=== PATIENT | male | born 1965 | race Caucasian/White ===

== ENCOUNTER 2025-02-10 21:34 | Emergency (ER) | payer SELFPAY ==
[2025-02-10 21:46] VITALS: BP 156/95; PULSE 76; RESP 22; TEMP 36.8; O2SAT 100; BMI 31.1
--- NOTE | 2025-02-10 21:47 | ECG_ITS ---
APPROVED REPORT Exam: Resting ECG HR:80 bpm ECG Measurements Heart Rate 80 AXES UT 147 P 65 QRSd 98 QRS 48 QT 351 T 62 QTc 387 Conclusion SINUS RHYTHM POSSIBLE RIGHT VENTRICULAR CONDUCTION DELAY [RSR (QR) IN V1/V2] MODERATE ST DEPRESSION [0.05+ mV ST DEPRESSION] ABNORMAL ECG UNCONFIRMED REPORT Electronically signed by : SAMEERA HOWE, 02/11/2025 00:17:07
--- NOTE | 2025-02-10 21:53 | [facility].EDGENADL ---
Discharge Plan Disposition Patient Disposition: Home, Self-Care Condition: Good Referrals Follow up/Referrals: Provider,Referral, [Primary Care Provider, Medical] - See instructions Activity Restrictions/Add. Instructions Additional Instructions/Restrictions: okay to go to [facility]. Clinical Impressions Clinical Impression: Chest pain Print Language Print Language: Lao Discharge ED Provider: Paola Franks Adult HPI General Chief complaint: Medical Clearance Stated complaint: Medical clearance Time Seen by Provider: 02/10/25 21:48 Mode of Arrival: Ambulatory Source of Information: Patient Description of Symptoms (Recalled from ER Triage Doc. by RN): pt reports knee and shoulder pain its metal and dont work pt also reports his heart defibrillates but doesnt have a pacemaker pt reports chest pain times 1 week. pt reports his hands hurt from arthritis. History of Present Illness HPI narrative: Patient is a 67-year-old gentleman who presents to the emergency department with chest pain for 3 weeks. Patient states that he has had a constant pain. Patient denies any shortness of breath. Patient denies any abdominal pain nausea vomiting or diarrhea. Patient states that he drank 6 beers today. Patient states that he does not typically drink daily. Denies any palpitations. States that he has musculoskeletal pain in both of his shoulders and knees but has not had any trauma. Patient denies any new pain. Related Data Allergies Allergy/AdvReac Type Severity Reaction Status Date / Time morphine Allergy Unknown Verified 02/10/25 22:00 allergy reaction [facility] Disclaimer: The information contained in this section may have been updated after the patient was seen, as this information can be updated by other users. Social History Smoking Status: Current every day smoker alcohol intake: never current occupational status: other Travel in the last 8 weeks?: None ROS Obtained: Yes All systems reviewed & no additional complaints except as documented and Yes Systems reviewed as appropriate & no additional complaints except as documented Physical Exam General General appearance: alert and in no apparent distress Head Head exam: atraumatic, normocephalic and normal inspection Eye Eye exam: Present normal appearance, PERRL and EOMI; Absent scleral icterus ENT ENT exam: Present normal exam and normal external ear exam Neck Neck exam: Present normal inspection and full ROM Chest Chest inspection: Present normal inspection and symmetric chest wall rise Respiratory Respiratory exam: Present normal lung sounds bilaterally; Absent respiratory distress or wheezes Cardiovascular Cardiovascular exam: Present regular rate, normal rhythm and normal heart sounds Abdominal Exam Abdominal exam: Present soft and distention; Absent tenderness, guarding or rebound Extremities Exam Extremities exam: Present normal inspection and full ROM Back Exam Back exam: Present normal inspection and full ROM Neurological Exam Neurological exam: Present alert and oriented X3 Psychiatric Psychiatric exam: Present normal affect and normal mood Skin Skin exam: Present warm and dry Medical Decision Making Medical Records Medical records reviewed: Yes I reviewed the patient's medical records. Screening: Per USPSTF and CDC recommendations, given the prevalence of disease in our region, it is our hospital?s policy to screen for HIV and viral Hepatitis for all patients aged 18 and over and those with ongoing risk factors. Micah Inquiry Pt receiving controlled substance: No Vital Signs: 02/10/25 21:46 02/10/25 23:18 Temperature 98.2 F 98.2 F Temperature Source Oral Pulse Rate 80 Pulse Rate [Right] 76 Respiratory Rate 22 18 Blood Pressure 148/77 H Blood Pressure [Right Arm] 156/95 H Blood Pressure Mean [Right Arm] 115 02 Sat by Pulse Oximetry 100 Oxygen Delivery Method Room Air Room Air Lab Data Lab results reviewed: Yes I reviewed the patient's lab results. Lab Results 02/10/25 22:07: WBC 7.0, RBC 4.81, Hgb 15.2, Hct 45.2, MCV 94.0, MCH 31.6 H, MCHC 33.6, RDW 13.5, Plt Count 248, MPV 10.2, Neut % (Auto) 64.9, Lymph % (Auto) 21.1, [place] % (Auto) 9.8 H, Eos % (Auto) 2.9, Baso % (Auto) 0.9, Neut # (Auto) 4.6, Lymph # (Auto) 1.5, [place] # (Auto) 0.7, Eos # (Auto) 0.2, Baso # (Auto) 0.1, Sodium 139, Potassium 4.3, Chloride 107, Carbon Dioxide 22, Anion Gap 14.3, BUN 8 L, Creatinine 0.80, Estimated Creat Clear 145, Estimated GFR 99, Est GFR ( Amer) 119, Glucose 121 H, Calcium 9.0, Total Bilirubin 0.4, AST 99 H, ALT 57, Alkaline Phosphatase 173 H, Troponin I < 0.01, Total Protein 8.2, Albumin 4.9, Globulin 3.3 H, Albumin/Globulin Ratio 1.5, Lipase 91 02/10/25 22:07 02/10/25 22:07 Orders (Tests/Meds): ORDERS Category Date Time Status CXR --portable [XR chest portable] Stat Exams 02/10/25 21:57 Completed CBC w/Auto Diff [Complete Blood Count Auto Diff] Stat Lab 02/10/25 22:07 Completed CMP [Comprehensive Metabolic Panel] Stat Lab 02/10/25 22:07 Completed Lipase Stat Lab 02/10/25 22:07 Completed Trop I [Troponin I] Stat Lab 02/10/25 22:07 Completed Medical Decision Narrative: Patient is an otherwise healthy 59-year-old male who presented to the emergency department with chest pain for 3 weeks. On arrival, patient was hemodynamically stable with unremarkable vital signs. Differential includes but not limited to: Musculoskeletal pain, costochondritis, ACS/MT, pneumothorax, pleural effusion, amongst others. Labs were obtained as well as x-ray. Patient's labs were reviewed and interpreted by myself: CBC showed no leukocytosis, hemoglobin was stable. CMP was unremarkable. Troponin was less than 0.01. X-ray was reviewed and interpreted by myself and showed no focal consolidation, pneumothorax, pleural effusion or other acute cardiopulmonary process. Given the patient's symptoms have been present for 3 weeks, I did not feel that second troponin was indicated. At this time, patient was medically cleared for [facility]. Critical Care Critical Care Time Critical Care Time: No
--- NOTE | 2025-02-10 21:57 | XR_ITS ---
PROCEDURE INFORMATION: Exam: XR Chest Exam date and time: 02/10/2025 10:09 PM Age: 59 years old Clinical indication: Other: Chest pain TECHNIQUE: Imaging protocol: Radiologic exam of the chest. Views: 1 view. Total images: 1 COMPARISON: No relevant prior studies available. FINDINGS: Lungs: Unremarkable. No consolidation. No pulmonary vascular congestion or edema. Pleural spaces: Unremarkable. No pleural effusion. No pneumothorax. Heart/Mediastinum: Unremarkable. No cardiomegaly. No mediastinal widening or hilar enlargement. Vasculature: Mildly atherosclerotic aortic arch. Bones/joints: Left shoulder arthroplasty. Mild degenerative changes thoracic spine. IMPRESSION: No acute findings.
[2025-02-10 22:13] LABS: Hematocrit 45.2 % (42.0-52.0); Hemoglobin 15.2 g/dL (14.1-18.0); Immature Granulocytes % 0.4 %; Mean Corpuscular HGB Conc 33.6 g/dL (31.8-35.4); Mean Corpuscular Hemoglobin 31.6 pg (27.0-31.2); Mean Corpuscular Volume 94.0 fl (80-94); Nucleated Red Blood Cells % 0 %; Platelet Count 248 K/mm3 (142-424); Red Blood Count 4.81 M/mm3 (4.60-6.20); Red Cell Distribution Width-SD 46.7 fL; White Blood Count 7.0 K/mm3 (4.8-10.8)
[2025-02-10 22:44] LABS: Albumin Level 4.9 g/dl (3.5-5.0); Chloride 107 mmol/L (98-107); Sodium 139 mmol/L (136-145)
[2025-02-10 22:45] LABS: Potassium 4.3 mmoL/L (3.5-5.1)
[2025-02-10 22:47] LABS: Alanine Aminotransferase 57 U/L (12-78); Alkaline Phosphatase 173 U/L (38-126); Anion Gap 14.3 mEq/L (5-15); Aspartate Amino Transferase 99 U/L (17-59); Bilirubin,Total 0.4 mg/dl (0.2-1.3); Blood Urea Nitrogen 8 mg/dl (9-20); Carbon Dioxide 22 mmol/L (22.0-30.0); Creatinine Clearance Estimated 145 mL/min (50-200); Creatinine,Serum 0.80 mg/dl (0.66-1.25); Estimated Glomerular Filt Rate 99 ml/min (>60); GFR (African American) 119 ML/MIN (>60)
[2025-02-10 22:48] LABS: Albumin/Globulin Ratio 1.5 (1.1-1.8); Calcium 9.0 mg/dl (8.4-10.2); Globulin 3.3 g/dL (1.3-3.2); Glucose 121 mg/dl (74-100); Lipase 91 U/L (23-300); Total Protein,Serum 8.2 g/dl (6.3-8.2)
[2025-02-10 23:00] LABS: Troponin I < 0.01 ng/ml (0.00-0.034)
[2025-02-10 23:18] VITALS: BP 148/77; PULSE 80; RESP 18; TEMP 36.8; O2SAT 98
== END 2025-02-10 23:22 | disposition home or self-care (01) ==
PROVIDERS: Emergency Provider Student in an Organized Health Care Education/Training Program
DX: R07.9 Chest pain, unspecified (principal); F17.210 Nicotine dependence, cigarettes, uncomplicated
CPT/HCPCS: 71045; 80053; 83690; 84484; 85025; 93005; 99283; 99284